=== PATIENT | female | born 1960 | race Caucasian/White ===

== ENCOUNTER → 2021-09-25 | Outpatient (CLI) | payer OTHER ==
--- NOTE | 2021-09-25 12:03 | RAD ---
3 views of the right foot without comparison for right foot pain, stubbed toe. FINDINGS: No definite fracture, dislocation, or acute osseous abnormalities. Mild hallux valgus defor mity with mild osteoarthritis of the first metatarsophalangeal joint. There is irregular appearance o f one of 2 sesamoids, which may represent a bipartite sesamoid versus old sesamoid injury. There is a large calcaneal bone spur and a large calcaneal enthesophyte. Arterial vascular calcification are se en diffusely. IMPRESSION: 1. No acute osseous abnormality. Electronically signed by: Blas Aguila MD (09/25/2021 12:01 PM) [id number]
== END ==
LOC: RAD 08:41
PROVIDERS: ATTEND Family Medicine
DX: M19.071 Primary osteoarthritis, right ankle and foot (principal); M20.11 Hallux valgus (acquired), right foot; M77.31 Calcaneal spur, right foot
CPT/HCPCS: 73630

== ENCOUNTER 2021-11-20 06:00 | Inpatient (IN) | payer OTHER ==
[~2021-11-20] VITALS: Ht 160 cm; Wt 116.3 kg
--- NOTE | 2021-11-20 06:44 | PHYS DOC ---
Past History Past Medical History: COPD Past Surgical History: Cholecystectomy, Other Adult General Chief Complaint Chief Complaint: SHORTNESS OF BREATH HPI HPI Patient is a 61year old female who presents with complaint of shortness of breath. Patient states that her symptoms suddenly worsened this morning. Patient notes over the past few days she has been having cough, congestion, and which she attributes to allergy symptoms. Noted history of COPD. Patient states that she does not require home oxygen. Patient states that she took 2 breathing treatments prior to arrival with no significant improvement. Notes significant chest tightness and difficulty breathing. Denies abdominal pain, fever, body aches, chills, vomiting, or diarrhea. Review of Systems Review of Systems Constitutional: Denies fever or chills [] Eyes: Denies change in visual acuity, redness, or eye pain [] HENT: Congestion, runny nose, denies sore throat [] Respiratory: Shortness of breath, cough [] Cardiovascular: Denies chest pain or edema [] GI: Denies abdominal pain, nausea, vomiting, bloody stools or diarrhea [] : Denies dysuria or hematuria [] Musculoskeletal: Denies back pain or joint pain [] Integument: Denies rash or skin lesions [] Neurologic: Denies headache, focal weakness or sensory changes [] All other systems were reviewed and found to be within normal limits, except as documented in this note. Allergies Allergies Allergies Coded Allergies Type Severity Reaction Last Updated Verified heparin Allergy Unknown 11/20/21 Yes metformin Allergy Unknown 11/20/21 Yes Physical Exam Physical Exam Constitutional: Alert, afebrile, appears in moderate respiratory distress. [] HENT: Normocephalic, atraumatic, bilateral external ears normal, oropharynx moist, no oral exudates, nose normal. [] Eyes: PERRLA, EOMI, conjunctiva normal, no discharge. [] Neck: Normal range of motion, no tenderness, supple, no stridor. [] Cardiovascular: Tachycardia, regular rhythm, no murmurs [] Lungs & Thorax: Accessory muscle usage present, prolonged expiratory phase, expiratory wheezes bilaterally [] Abdomen: Bowel sounds normal, soft, no tenderness, no masses, no pulsatile masses. [] Skin: Warm, dry, no erythema, no rash. [] Back: No tenderness, no CVA tenderness. [] Extremities: No tenderness, no cyanosis, no clubbing, ROM intact, no edema. [] Neurologic: Alert and oriented X 3, normal motor function, normal sensory function, no focal deficits noted. [] Current Patient Data Vital Signs Vital Signs Date Time Temp Pulse Resp B/P (MAP) Pulse Ox O2 Delivery O2 Flow Rate FiO2 11/20/21 06:10 109 36 138/86 (103) 96 NonRebreather Mask 12.0 Lab Results Laboratory Tests Test 11/20/21 06:30 11/20/21 06:49 White Blood Count 8.1 x10^3/uL Red Blood Count 4.89 x10^6/uL Hemoglobin 14.5 g/dL Hematocrit 43.7 % Mean Corpuscular Volume 89 fL Mean Corpuscular Hemoglobin 30 pg Mean Corpuscular Hemoglobin Concent 33 g/dL Red Cell Distribution Width 13.6 % Platelet Count 195 x10^3/uL Neutrophils (%) (Auto) 62 % Lymphocytes (%) (Auto) 26 % Monocytes (%) (Auto) 5 % Eosinophils (%) (Auto) 6 % Basophils (%) (Auto) 1 % Neutrophils # (Auto) 5.0 x10^3uL Lymphocytes # (Auto) 2.1 x10^3/uL Monocytes # (Auto) 0.4 x10^3/uL Eosinophils # (Auto) 0.5 x10^3/uL Basophils # (Auto) 0.0 x10^3/uL Sodium Level 133 mmol/L Potassium Level 3.9 mmol/L Chloride Level 97 mmol/L Carbon Dioxide Level 25 mmol/L Anion Gap 11 Blood Urea Nitrogen 26 mg/dL Creatinine 1.2 mg/dL Estimated GFR (Cockcroft-Gault) 45.5 BUN/Creatinine Ratio 22 Glucose Level 345 mg/dL Calcium Level 9.5 mg/dL Total Bilirubin 0.6 mg/dL Aspartate Amino Transf (AST/SGOT) 14 U/L Alanine Aminotransferase (ALT/SGPT) 27 U/L Alkaline Phosphatase 106 U/L Total Protein 7.1 g/dL Albumin 3.1 g/dL Albumin/Globulin Ratio 0.8 SARS-CoV-2 Antigen (Rapid) Negative Blood Gas pH 7.35 Blood Gas PCO2 48 mmHg Blood Gas PO2 74 mmHg Blood Gas HCO3 27 mmol/L Arterial Bld O2 Saturation (Calc) 94 % FiO2 100 % Current Medications Medications (Trade) Dose Ordered Sig/[place] Route PRN Reason Start Time Stop Time Status Last Admin Dose Admin Albuterol Sulfate (Ventolin) 5 mg 1X ONCE NEB 11/20/21 07:00 11/20/21 07:03 DC 11/20/21 07:10 EKG EKG Interpreted by me: Interpretation limited by artifact. Heart rate 108, sinus tachycardia, no acute ST/T wave abnormalities, left axis deviation. [] Radiology/Procedures Radiology/[place] [address] IMAGING REPORT Signed PATIENT: DEBBIE DOUGLAS ACCOUNT: [id number] : 1960 LOCATION: ER AGE: 61 SEX: F EXAM STATUS: REG ER ORD. PHYSICIAN: SAY MCKINNEY MD REASON: shortness of breath PROCEDURE: PORTABLE CHEST 1V Study: XR CHEST 1V Indication: Shortness of breath. Comparison: None. Findings: The cardiomediastinal silhouette and erin are within normal limits considering AP technique. No localized airspace opacity, pleural effusion or pneumothorax. Impression: No acute radiographic abnormality of the chest. Electronically signed by: RHONDA CLARK MD (11/20/2021 7:14 AM) [facility] DICTATED AND SIGNED BY: RHONDA CLARK MD DATE: 11/20/21707 CC: SAY MCKINNEY MD; MARIA TERESA PA ~ [] Heart Score C/O Chest Pain: No Risk Factors: Risk Factors: DM, Current or recent (<one month) smoker, HTN, HLP, family history of CAD, obesity. Risk Scores: Risk Factors: DM, Current or recent (<one month) smoker, HTN, HLP, family history of CAD, obesity. Course & Med Decision Making Course & Med Decision Making Pertinent Labs and Imaging studies reviewed. (See chart for details) Patient was placed on supplemental oxygen due to low O2 sats during initial presentation. O2 sats are holding stable supplemental oxygen at 97% currently. Was administered 1 unit dose of DuoNeb and 2 unit doses of AccuNeb in addition to Solu-Medrol 125 mg IV. The patient's ABG was reviewed and shows relative hypoxia and hypercapnia. Due to presence of acute on chronic respiratory failure, patient will need admission to the hospital for further care. I spoke with Dr. Rob, hospitalist, who is agreed to accept patient to hospital for further care. Spoke with patient regarding plan of care and she is in agreement at time of disposition. Critical care time excluding procedures: 45 minutes [] Dragon Disclaimer Dragon Disclaimer This electronic medical record was generated, in whole or in part, using a voice recognition dictation system. Departure Departure: Impression: Primary Impression: Acute on chronic respiratory failure with hypoxia and hypercapnia Additional Impressions: COPD exacerbation Diabetes mellitus Lab test negative for COVID-19 virus Disposition: ADMITTED INPATIENT Admitting Physician: Crescencio Rob Condition: GUARDED Referrals: MARIA TERESA PA (PCP) Problem Qualifiers Additional Impressions: Diabetes mellitus Diabetes mellitus type: type 2 Diabetes mellitus roasterman insulin use: unspecified roasterman insulin use status Diabetes mellitus complication status: with hyperglycemia Qualified Codes: E11.65 - Type 2 diabetes mellitus with hyperglycemia SAY MCKINNEY MD November 20, 2021 06:44
[2021-11-20 06:51] LABS: BASO % 1 % (0-3); CALCIUM 9.5 mg/dL (8.5-10.1); CREATININE 1.2 mg/dL (0.6-1.0); EOS # 0.5 x10^3/uL (0.0-0.7); EOS % 6 % (0-3); GFR 45.5; HEMATOCRIT 43.7 % (36.0-47.0); HEMOGLOBIN 14.5 g/dL (12.0-15.5); LYMPH # 2.1 x10^3/uL (1.0-4.8); LYMPH % 26 % (24-48); MEAN CORPUSCULAR HEMOGLOBIN 30 pg (25-35); MEAN CORPUSCULAR HGB CONC 33 g/dL (31-37); MEAN CORPUSCULAR VOLUME 89 fL (79-100); MONO # 0.4 x10^3/uL (0.0-1.1); MONO % 5 % (0-9); NEUT % 62 % (31-73); PLATELET COUNT 195 x10^3/uL (140-400); POTASSIUM 3.9 mmol/L (3.5-5.1); RED BLOOD COUNT 4.89 x10^6/uL (3.50-5.40); RED CELL DISTRIBUTION WIDTH 13.6 % (11.5-14.5); WHITE BLOOD COUNT 8.1 x10^3/uL (4.0-11.0)
[2021-11-20 06:53] LABS: BGAS PH 7.35 (7.35-7.45)
[2021-11-20 06:57] LABS: ALBUMIN 3.1 g/dL (3.4-5.0); ALBUMIN/GLOBULIN RATIO 0.8 (1.0-1.7); TOTAL BILIRUBIN 0.6 mg/dL (0.2-1.0); TOTAL PROTEIN 7.1 g/dL (6.4-8.2)
[2021-11-20] MEDS ORDERED: ALBUTEROL SULFATE 2.5 MG/3 ML NEBU. NEB ONE (07:00)
[2021-11-20] MEDS: IV NORMAL SALINE 1,000ML 1,000 ML IV SCH ×3 (07:15→23:15)
[2021-11-20] MEDS ORDERED: ACETAMINOPHEN 325 MG TABLET PO PRN (07:15)
[2021-11-20] MEDS ORDERED: ALBUTEROL SULFATE 2.5 MG/3 ML NEBU. NEB PRN (07:15)
--- NOTE | 2021-11-20 07:17 | RAD ---
Study: XR CHEST 1V Indication: Shortness of breath. Comparison: None. Findings: The cardiomediastinal silhouette and erin are within normal limits considering AP technique. No local ized airspace opacity, pleural effusion or pneumothorax. Impression: No acute radiographic abnormality of the chest. Electronically signed by: RHONDA CLARK MD (11/20/2021 7:14 AM) [facility] [place]
[2021-11-20] MEDS: methylPREDNISolone SOD SUCC PF 40 MG/ML VIAL. IV SCH ×3 (07:20→21:15)
[2021-11-20] MEDS: ONDANSETRON PF 4 MG/2 ML VIAL. IVP PRN ×2 (07:29→07:59)
[2021-11-20] MEDS ORDERED: methylPREDNISolone SOD SUCC PF 125 MG/2 ML VIAL. ONE (07:37)
[2021-11-20] MEDS ORDERED: methylPREDNISolone SOD SUCC PF 125 MG/2 ML VIAL. IV ONE (07:45)
[2021-11-20] MEDS ORDERED: methylPREDNISolone SOD SUCC PF 40 MG/ML VIAL. IV ONE (07:45)
[2021-11-20 10:42] LABS: BACTERIA,URINE MANY /HPF (0-FEW); CLARITY,URINE CLOUDY; COLOR,URINE YELLOW; GLUCOSE,URINE >=1000 mg/dL (NEG); NITRITE,URINE NEG (NEG); SQUAMOUS EPITHELIAL CELL,UR MOD /LPF; UROBILINOGEN,URINE 0.2 mg/dL (0.2 mg/dL); WBC,URINE TNTC /HPF (0-4)
[2021-11-20 15:30] VITALS: BP 143/79
[2021-11-20] MEDS ORDERED: DEXTROSE 50% 25 GM / 50ML DISP.SYRIN. IV PRN (16:00)
[2021-11-20] MEDS: INSULIN LISPRO 300 UNITS/3 ML VIAL. SQ SCH ×3 (17:00→17:37)
[2021-11-20 19:22] VITALS: BP 147/84
[2021-11-20] MEDS: metFORMIN XR 500 MG TAB.ER.24H PO SCH (21:14)
[2021-11-20] MEDS: INSULIN GLARGINE SYRINGE. SQ SCH (21:17)
[2021-11-20 22:45] VITALS: BP 148/83
[2021-11-21 06:49] VITALS: BP 112/70
[2021-11-21 06:53] LABS: BASO % 0 % (0-3); EOS % 0 % (0-3); HEMATOCRIT 43.5 % (36.0-47.0); HEMOGLOBIN 14.3 g/dL (12.0-15.5); LYMPH # 1.1 x10^3/uL (1.0-4.8); LYMPH % 8 % (24-48); MEAN CORPUSCULAR HEMOGLOBIN 30 pg (25-35); MEAN CORPUSCULAR HGB CONC 33 g/dL (31-37); MEAN CORPUSCULAR VOLUME 90 fL (79-100); MONO # 0.2 x10^3/uL (0.0-1.1); MONO % 2 % (0-9); NEUT # 11.7 x10^3uL (1.8-7.7); NEUT % 90 % (31-73); PLATELET COUNT 218 x10^3/uL (140-400); RED BLOOD COUNT 4.84 x10^6/uL (3.50-5.40); RED CELL DISTRIBUTION WIDTH 13.3 % (11.5-14.5)
[2021-11-21 07:04] LABS: ALBUMIN/GLOBULIN RATIO 0.7 (1.0-1.7); CALCIUM 9.3 mg/dL (8.5-10.1); CREATININE 1.2 mg/dL (0.6-1.0); GFR 45.5; POTASSIUM 4.1 mmol/L (3.5-5.1); TOTAL BILIRUBIN 0.5 mg/dL (0.2-1.0); TOTAL PROTEIN 7.5 g/dL (6.4-8.2)
[2021-11-21] MEDS: methylPREDNISolone SOD SUCC PF 40 MG/ML VIAL. IV SCH (08:16)
[2021-11-21] MEDS: metFORMIN XR 500 MG TAB.ER.24H PO SCH ×2 (08:16→21:13)
[2021-11-21] MEDS: LOSARTAN 50 MG TABLET. PO SCH (08:17)
[2021-11-21] MEDS: INSULIN LISPRO 300 UNITS/3 ML VIAL. SQ SCH ×7 (08:31→17:55)
[2021-11-21 15:00] VITALS: BP 148/71
[2021-11-21 19:30] VITALS: BP 140/73
[2021-11-21] MEDS: LACTOBACILLUS RHAMNOSUS GG 1 CAPSULE. PO SCH (21:13)
[2021-11-21] MEDS: INSULIN GLARGINE SYRINGE. SQ SCH (21:13)
[2021-11-21 23:15] VITALS: BP 120/77
--- NOTE | 2021-11-22 04:01 | PN ---
DATE: 11/21/2021 SUBJECTIVE: The patient is sitting comfortably in her chair, continue to have cough and chest tightness and wheezing. Her urine culture has grown more than 100,000 colony forming units per mL of gram-negative rods identified as Cronobacter species. The sensitivity is still pending at the time of this dictation. PHYSICAL EXAMINATION: GENERAL: When I examined her, she looked well, slightly tachypneic, but no pallor, jaundice, cyanosis or thyromegaly. No jugular venous distention. No lower limb edema. VITAL SIGNS: Her heart rate was 84, blood pressure is 112/70, temperature was 97.9, respiratory rate 20, and oxygen saturation was 94% on room air. HEAD, EYES, EARS, NOSE AND THROAT: Normocephalic, atraumatic. NECK: Supple. HEART: Normal first and second heart sounds. No gallop or murmur. CHEST: Showed central trachea, equal bilateral chest expansion, air entry expansion with diffuse bilateral scattered rhonchi. I could not appreciate any crepitation. ABDOMEN: Distended, soft, nontender. NEUROLOGIC: She was grossly intact. Her intake and output are incompletely recorded. LABORATORY DATA: This morning showed a white cell count of 13,000, hemoglobin 14, hematocrit 44, MCV 90, and platelet count of 118,000 with a manual differential showed 90% polymorphs, 8% lymphocytes, and 2% monocytes. Her chemistry showed a serum sodium 135, potassium 4.1, chloride 98, bicarbonate 25, anion gap of 12, BUN 29, creatinine 1.2. Estimated GFR was 45 mL per minute. Her glucose was 359, calcium was 9.3. Total bilirubin, AST, ALT, alkaline phosphatase were normal. Total protein 7.5, albumin 3. Her coronavirus by rapid antigen testing and by PCR both negative. ASSESSMENT: 1. Acute asthma exacerbation. 2. Hypertension. 3. Urinary tract infection. 4. Type 2 diabetes mellitus. 5. Morbid obesity and obstructive sleep apnea. PLAN: I will discontinue her methylprednisone and switch her to oral prednisone tomorrow morning and if we have the culture and sensitivity, the patient can be discharged home tomorrow. AMIE DR: Avtar TID: [id number]
[2021-11-22 05:40] VITALS: BP 120/73
[2021-11-22 07:08] LABS: HEMATOCRIT 41.4 % (36.0-47.0); HEMOGLOBIN 13.5 g/dL (12.0-15.5); RED BLOOD COUNT 4.6 x10^6/uL (3.50-5.40); RED CELL DISTRIBUTION WIDTH 13.1 % (11.5-14.5); WHITE BLOOD COUNT 17.1 x10^3/uL (4.0-11.0)
[2021-11-22 07:18] LABS: CALCIUM 9.2 mg/dL (8.5-10.1); GFR 56.2; POTASSIUM 4.1 mmol/L (3.5-5.1)
[2021-11-22] MEDS: metFORMIN XR 500 MG TAB.ER.24H PO SCH (08:42)
[2021-11-22] MEDS: LOSARTAN 50 MG TABLET. PO SCH (08:42)
[2021-11-22] MEDS: LACTOBACILLUS RHAMNOSUS GG 1 CAPSULE. PO SCH (08:42)
[2021-11-22] MEDS: INSULIN LISPRO 300 UNITS/3 ML VIAL. SQ SCH ×4 (08:55→12:28)
[2021-11-22] MEDS ORDERED: predniSONE 20 MG TABLET PO SCH (09:00)
[2021-11-22] MEDS ORDERED: POLYETHYLENE GLYCOL 3350 17 GM PACKET. PO SCH (09:00)
[2021-11-22 11:39] VITALS: BP 128/84
[2021-11-22] MEDS ORDERED: CEFD300C PO (12:55)
[2021-11-22] MEDS ORDERED: METF-658 PO (12:55)
--- NOTE | 2021-11-23 09:38 | HP ---
DATE OF SERVICE: 11/20/2021 ADMIT DATE: 11/20/2021 HISTORY OF PRESENT ILLNESS: The patient is a 61-year-old female patient who presented to the Emergency Room with a complaint of shortness of breath. She stated her symptoms suddenly worsened this morning. The patient noticed over the past few days, she has been having cough, congestion that she attributes to allergic symptoms. Noted history of COPD. The patient stated that she does not require home oxygen. She woke up around 3:30, found herself very short of breath with marked chest tightness. She stated that she has taken 2 breathing treatments prior to arrival without any improvement in her symptoms and continued to have marked tightness of the chest and difficulty breathing; however, denied any chest pain, denied any diaphoresis, nausea or vomiting. She apparently was extensively investigated in the Emergency Room, has had lab work and imaging studies. Her lab work showed that her white cell count was 8.1. Her arterial blood gases showed a pH of 7.35, a pCO2 of 48, pO2 of 74, bicarbonate 27 and oxygen saturation was 94% on FiO2 of 100%. Her chemistry showed mild hyponatremia and chronic kidney disease. Her blood sugar was high at 345. Her urinalysis showed urine was yellow, cloudy with a pH of 5, specific gravity of 1.030. There was small amount of protein, large amount of glucose. There was a trace of ketones, moderate amount of blood, trace leukocyte esterase, 11-20 rbc's, too numerous to count wbc's and many bacteria. Her coronavirus by rapid antigen testing was negative. She was treated with IV Solu-Medrol and albuterol treatment and was admitted for further evaluation and treatment. PAST MEDICAL HISTORY: Significant for hypertension, asthmatic bronchitis, nephrolithiasis, morbid obesity with a body mass index 45, and obstructive sleep apnea, on CPAP with oxygen. PAST SURGICAL HISTORY: Significant for cholecystectomy, cochlear implant on the left side, bilateral cataract extraction, left breast biopsy, and colonoscopy. ALLERGIES: SHE IS ALLERGIC TO HEPARIN AND METFORMIN. MEDICATIONS: I do not have the list of medication. We will call the pharmacy to get her list of medication. FAMILY HISTORY: She has 2 brothers and 1 sister, all living in [place]. Her father at age of 82 because of bladder cancer. Mother at age of 58 because of Alzheimer's disease. SOCIAL HISTORY: She is , has 1 daughter. She never smoked, does not drink alcohol or recreational drugs. 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 REVIEW OF SYSTEMS: As per history of present illness. PHYSICAL EXAMINATION: GENERAL: On arrival to the Emergency Room, the patient was tachypneic, tachycardic, but there is no pallor, jaundice, cyanosis or thyromegaly. No jugular venous distention. No limb edema. VITAL SIGNS: Her heart rate was 109, blood pressure was 138/86, temperature was 98, respiratory rate was 36 and oxygen saturation was 96% on 12 liters of oxygen. HEAD, EYES, EARS, NOSE, AND THROAT: Normocephalic, atraumatic. NECK: Supple. HEART: Normal first and second heart sounds. No gallop, rub or murmur. CHEST: Showed prolonged expiratory phase and expiratory wheeze bilaterally. The patient was in a tripod position, using accessory muscles. ABDOMEN: Distended, soft, nontender. No palpable, pulsatile masses. NEUROLOGIC: She was awake, alert, responding appropriately. All her cranial nerves are intact. She moves all extremities without difficulty. She ambulates without assistance or assistive devices. LABORATORY DATA: On arrival, her white cell count was 8.1, hemoglobin 14.5, hematocrit 44, MCV 89 and platelet count of 195,000 with normal manual differential. Her chemistry showed a serum sodium 133, potassium 3.9, chloride 97, bicarbonate 25, anion gap of 11, BUN 26, creatinine 1.2. Estimated GFR was 45 mL per minute. Her glucose was 345, calcium was 9.5. Total bilirubin, AST, ALT, alkaline phosphatase were normal. Total protein 7.1, albumin was 3.1. Her blood gas showed a pH of 7.35, a pCO2 of 48, pO2 of 74, bicarbonate 27 and oxygen saturation was 94% on FiO2 of 100%. Urinalysis showed the urine was yellow, cloudy with a pH of 5, specific gravity of 1.030. There was a small amount of protein, large amount of glucose, trace of ketones, moderate amount of blood, negative for nitrite and bilirubin. There was a trace of leukocyte esterase, 11-20 rbc's, too numerous to count wbc's and too many bacteria. Her coronavirus by rapid antigen testing was negative. The chest x-ray showed the cardiomediastinal silhouette and erin are within normal limits considering anterior posterior technique. No localized airspace opacity, pleural effusion or pneumothorax. ASSESSMENT AND PLAN: The patient was admitted with acute asthma exacerbation, was treated with IV Solu-Medrol and nebulized albuterol and Atrovent. She has hypertension, obstructive sleep apnea, on CPAP and type 2 diabetes mellitus. She also has a urinary tract infection. GARFIELD DR: Avtar TID: [id number]
== END 2021-11-22 14:01 | disposition home or self-care (01) | DRG 189 ==
LOC: ER 06:00 → ER HOLD 07:20 → 1 SOUTH 15:20
PROVIDERS: ADMIT Internal Medicine; ATTEND Internal Medicine
DX: J96.21 Acute and chronic respiratory failure with hypoxia (principal); E87.1 Hypo-osmolality and hyponatremia; J44.1 Chronic obstructive pulmonary disease with (acute) exacerbation; J45.901 Unspecified asthma with (acute) exacerbation; N39.0 Urinary tract infection, site not specified; Z68.42 Body mass index [BMI] 45.0-49.9, adult; E11.22 Type 2 diabetes mellitus with diabetic chronic kidney disease; J96.22 Acute and chronic respiratory failure with hypercapnia; E66.01 Morbid (severe) obesity due to excess calories; G47.33 Obstructive sleep apnea (adult) (pediatric); I12.9 Hypertensive chronic kidney disease with stage 1 through stage 4 chronic kidney disease, or unspecified chronic kidney disease; N18.9 Chronic kidney disease, unspecified; Z20.822 Contact with and (suspected) exposure to COVID-19; Z80.52 Family history of malignant neoplasm of bladder; Z82.0 Family history of epilepsy and other diseases of the nervous system; Z87.442 Personal history of urinary calculi; Z98.41 Cataract extraction status, right eye; Z98.42 Cataract extraction status, left eye; Z63.4 Disappearance and death of family member; E11.65 Type 2 diabetes mellitus with hyperglycemia; Z88.8 Allergy status to other drugs, medicaments and biological substances
CPT/HCPCS: 36415; 36600; 71045; 80048; 80053; 81001; 82803; 82947; 85025; 85027; 87077; 87086; 87186; 87426; 93005; 94640; 96374; 96375; 96376; J0696; J1815; J2060; J2405; J2920; J7512; U0003; 99291-25; J7030; J7613